=== PATIENT | female | born 1960 | race Caucasian/White ===

== ENCOUNTER 2019-01-16 10:01 | Emergency (ER) | payer BC, OTHER ==
[2019-01-16 10:45] VITALS: BP 126/80
--- NOTE | 2019-01-16 11:00 | UC ---
Throat Pain/Nasal Andrew HPI - HPI Summary HPI Summary: SINUS CONGESTION, COUGH, SORE THROAT X 8DAYS. COLD SWEATS. NETTI POT AND OTC MEDS WITHOUT RELIEF. - History of Current Complaint Chief Complaint: UCGeneralIllness Stated Complaint: THROAT,SINUSES Time Seen by Provider: 01/16/19 10:44 Hx Obtained From: Patient Hx Last Menstrual Period: 2011 ?: No Onset/Duration: Sudden Onset, Lasting Days Severity: Moderate Pain Intensity: 6 Associated Signs & Symptoms: Positive: Dysphagia, Sinus Discomfort, Nasal Discharge - Allergies/Home Medications Allergies/Adverse Reactions: Allergies Allergy/AdvReac Type Severity Reaction Status Date / Time amoxicillin [From Augmentin] Allergy Vomiting Verified 01/16/19 10:40 clavulanic acid Allergy Vomiting Verified 01/16/19 10:40 [From Augmentin] Home Medications: Home Medications D-Methorphan/PE/Acetaminophen [Daytime Cold-Flu Liquid] 1 dose PO ONCE 01/16/19 [History Confirmed 01/16/19] Dm/Acetaminophen/Doxylamine [Nighttime Cold-Flu Liquid] 1 dose PO ONCE 01/16/19 [History Confirmed 01/16/19] PMH/Surg Hx/FS Hx/Imm Hx Previously Healthy: Yes - Surgical History Surgical History: None - Family History Known Family History: Positive: Hypertension - Social History Alcohol Use: Rare Substance Use Type: None Smoking Status (MU): Never Smoked Tobacco Review of Systems All Other Systems Reviewed And Are Negative: Yes ENT: Positive: Sore Throat, Nasal Discharge, Sinus Congestion Respiratory: Positive: Cough Is Patient Immunocompromised?: No Physical Exam Triage Information Reviewed: Yes Appearance: Well-Nourished, Ill-Appearing, Pain Distress Vital Signs: Initial Vital Signs Temp 98.2 F 01/16/19 10:41 Pulse 96 01/16/19 10:41 Resp 18 01/16/19 10:41 BP 126/80 01/16/19 10:41 Pulse Ox 99 01/16/19 10:41 Vital Signs Reviewed: Yes Eye Exam: Normal ENT: Positive: Pharyngeal erythema, Nasal congestion - more on right than left, Nasal drainage, TM bulging, Other - swollen taste buds on back of tongue Dental Exam: Normal Neck exam: Normal Respiratory Exam: Normal Cardiovascular Exam: Normal Abdominal Exam: Normal Bowel Sounds: Positive: Present Musculoskeletal Exam: Normal Neurological Exam: Normal Psychological Exam: Normal Skin Exam: Normal Throat Pain/Nasal Course/Dx - Course Course Of Treatment: hx obtained, exam performed ,meds reviewed, treated for right sided sinusitis - Differential Dx/Diagnosis Differential Diagnosis/HQI/PQRI: Pharyngitis, Sinusitis, URI Provider Diagnosis: Sinusitis Discharge ED - Sign-Out/Discharge Documenting (check all that apply): Patient Departure All imaging exams completed and their final reports reviewed: No Studies - Discharge Plan Condition: Stable Disposition: HOME Prescriptions: Azithromycin TAB* [Zithromax TAB (Z-TAISHA) 250 mg #6 tabs] 2 tab PO .TODAY, THEN 1 DAILY #1 taisha Patient Education Materials: Sinusitis (ED) Referrals: No Primary Care Phys,NOPCP [Primary Care Provider] - Additional Instructions: 1. take the medication as prescribed. 2. Get some rest 3. salt water gargles and warm fluids 4. Continue with the neti pot 5. follow up as needed. - Billing Disposition and Condition Condition: STABLE Disposition: Home - Attestation Statements Provider Attestation: I was available for consult. This patient was seen by the NANCY. The patient was not presented to , seen by or examined by la -Ryan Lim MD
== END 2019-01-16 11:12 | disposition home or self-care (01) ==
LOC: UCCORT 10:01
DX: J32.9 Chronic sinusitis, unspecified (principal); R13.10 Dysphagia, unspecified; Z88.0 Allergy status to penicillin
CPT/HCPCS: 99212; G0463